=== PATIENT | female | born 1930 | race Caucasian/White ===

== ENCOUNTER 2017-06-15 13:21 | Emergency (ER) | payer OTHER ==
[~2017-06-15] VITALS: Ht 147.3 cm; Wt 35.9 kg
[2017-06-15 15:01] LABS: BASOPHIL (%) 0.2 % (0-1); EOSINOPHIL (%) 0.1 % (0-5); HEMATOCRIT 32.8 % (36.0-46.0); HEMOGLOBIN 11.7 G/DL (11.9-15.5); IMMATURE GRANULOCYTE (%) 0.2 % (0.0-0.7); LYMPHOCYTE (%) 14.2 % (15-42); LYMPHOCYTE COUNT 1.5 K/uL (1.0-2.8); MCH 33.1 PG (29.0-34.0); MCHC 35.7 G/DL (30.0-36.0); MCV 92.7 FL (83-99); MONOCYTE (%) 10.6 % (3-12); MONOCYTE COUNT 1.1 K/uL (0-0.8); NEUTROPHIL (%) 74.7 % (45-76); NEUTROPHIL COUNT 7.9 K/uL (1.8-6.4); PLATELET COUNT 195 K/uL (156-360); RBC DIS.WIDTH-CV 12.1 % (11.8-14.6); RBC DIS.WIDTH-SD 41.1 % (39-53); RED BLOOD COUNT 3.54 M/uL (3.80-5.20); WHITE BLOOD COUNT 10.6 K/uL (4.1-10.2)
[2017-06-15 15:10] LABS: ALBUMIN 3.9 g/dL (3.2-4.8); CHLORIDE 101 mEq/L (99-109); POTASSIUM 3.6 mEq/L (3.7-5.4); SODIUM 135 mEq/L (136-147)
[2017-06-15 15:13] LABS: GLUCOSE 104 mg/dL (70-99); TOTAL PROTEIN 6.4 g/dL (6.4-8.3)
[2017-06-15 15:14] LABS: TOTAL BILIRUBIN 1.1 mg/dL (0.0-1.0)
[2017-06-15 15:15] LABS: SERUM ETHYL ALCOHOL < 10 mg/dL
[2017-06-15 15:16] LABS: ALKALINE PHOSPHATASE 62 IU/L (3-129); CREATININE 1.2 mg/dL (0.6-1.3); GFR ESTIMATE (CALCULATED) 45 mL/min/
[2017-06-15 15:17] LABS: UREA NITROGEN (BUN) 26 mg/dL (9-23)
[2017-06-15 15:18] LABS: AST (GOT) 17 IU/L (2-34)
[2017-06-15 15:19] LABS: ALT (GPT) 10 IU/L (3-49)
[2017-06-15] MEDS ORDERED: LEVAQUIN750 MG PO (16:39)
[2017-06-15 16:56] VITALS: BP 110/62
== END 2017-06-15 17:06 | disposition home or self-care (01) ==
LOC: EME 13:21
PROVIDERS: Emergency Medicine
DX: R07.81 Pleurodynia (principal); R05 Cough; F43.21 Adjustment disorder with depressed mood; F41.9 Anxiety disorder, unspecified
CPT/HCPCS: 71046; 80053; 81003; 83735; 85025; 90839; 93005; G0480

== ENCOUNTER 2017-06-22 13:39 | Emergency (ER) | payer OTHER ==
[~2017-06-22] VITALS: Ht 147.3 cm; Wt 34.2 kg
[~2017-06-22 13:39] MED LIST: LEVAQUIN750 MG PO
[2017-06-22 14:41] VITALS: BP 102/71
== END 2017-06-22 17:21 | disposition left against medical advice (07) ==
LOC: EME 13:39
DX: K59.00 Constipation, unspecified (principal); R63.8 Other symptoms and signs concerning food and fluid intake; Z53.21 Procedure and treatment not carried out due to patient leaving prior to being seen by health care provider